=== PATIENT | male | born 1990 | race Caucasian/White ===

== ENCOUNTER 2024-12-29 09:18 | Emergency (ER) | payer SELFPAY ==
[~2024-12-29 09:18] MED LIST: NO HOME MEDS; ZOF4T PO
== END 2024-12-29 09:40 | disposition left against medical advice (07) ==
LOC: ER 09:19
DX: R10.84 Generalized abdominal pain (principal); Z53.21 Procedure and treatment not carried out due to patient leaving prior to being seen by health care provider